=== PATIENT | female | born 1990 | race Caucasian/White ===

== ENCOUNTER 2017-08-01 19:14 | Emergency (ER) | payer SELFPAY ==
[2017-08-01 20:55] LABS: BASO % 0.3 % (0.0-2.0); EOS % 0.2 % (0.0-4.0); HEMOGLOBIN 14.3 g/dL (11.0-16.0); LYMPH # 2.8 K/uL (1.0-4.3); LYMPH % 19.7 % (20.0-40.0); MEAN CELL VOLUME 89.3 fL (81.0-99.0); MEAN CORPUSCULAR HEMOGLOBIN 29.8 pg (27.0-31.0); MEAN CORPUSCULAR HGB CONC 33.4 g/dL (33.0-37.0); MEAN PLATELET VOLUME 8.4 fL (7.2-11.7); MONO # 0.9 K/uL (0.0-0.8); MONO % 6.6 % (0.0-10.0); NEUT # 10.4 K/uL (1.8-7.0); NEUT % 73.2 % (50.0-75.0); RBC 4.79 Mil/uL (3.80-5.20); WHITE BLOOD COUNT 14.2 K/uL (4.8-10.8)
[2017-08-01 20:58] LABS: HCG,QUALITATIVE URINE POSITIVE (NEGATIVE)
[2017-08-01 21:01] LABS: SQUAMOUS EPITHIAL 1 /hpf (0-5); URINE BACTERIA FEW (<OCC); URINE BILIRUBIN NEGATIVE (NEGATIVE); URINE BLOOD NEGATIVE (NEGATIVE); URINE CLARITY Clear (Clear); URINE COLOR Yellow (YELLOW); URINE GLUCOSE (UA) NORMAL (Normal); URINE LEUKOCYTE ESTERASE NEG Leu/uL (Negative); URINE NITRATE NEGATIVE (NEGATIVE); URINE PROTEIN NEGATIVE (NEGATIVE); URINE UROBILINOGEN NORMAL mg/dL (0.2-1.0)
[2017-08-01 21:12] LABS: ALB/GLOB RATIO 1.3 (1.0-2.1); ALBUMIN 4.2 g/dL (3.5-5.0); ALT/SGPT 20 U/L (9-52); AST/SGOT 15 U/L (14-36); BLOOD UREA NITROGEN 10 mg/dL (7-17); CALCIUM 8.5 mg/dl (8.6-10.4); GFR AFRICAN-AMERICAN > 60; GFR NON-AFRICAN AMERICAN > 60
[2017-08-01] MEDS ORDERED: Sodium Chloride 0.9% 1,000 ML IV ONE (21:17)
[2017-08-01] MEDS ORDERED: Sodium Chloride 0.9% 1,000 ML ONE (21:22)
--- NOTE | 2017-08-01 21:29 | C.PDOC ---
History Of Present Illness 26 y/o female c/o nausea and vomiting that began 2 weeks ago. She states positive test at home, first time , and last period was May. Assoc. symptoms are trouble urination and reports cloudy urine. Denies fever, abdominal pain, or vaginal bleeding. She also states she hasn't seen her [employer]. Time Seen by Provider: 08/01/17 21:04 Chief Complaint (Nursing): Abdominal Pain History Per: Patient History/Exam Limitations: no limitations Onset/Duration Of Symptoms: Days (14) Current Symptoms Are (Timing): Still Present Radiation Of Pain To:: None Quality Of Discomfort: Cramping Associated Symptoms: Nausea, Vomiting, Urinary Symptoms. denies: Fever, Diarrhea Exacerbating Factors: None Alleviating Factors: None Recent travel outside of the [place]: No Abnormal Vaginal Bleeding: No Past Medical History Reviewed: Historical Data, Nursing Documentation, Vital Signs Vital Signs: Last Vital Signs Temp 98.6 F 08/01/17 20:14 Pulse 92 H 08/01/17 20:14 Resp 20 08/01/17 20:14 BP 115/78 08/01/17 20:14 Pulse Ox 100 08/02/17 00:33 - Medical History PMH: No Chronic Diseases Surgical History: No Surg Hx Family History: States: Unknown Family Hx Other Family History: nc - Social History Hx Alcohol Use: No Hx Substance Use: No - Immunization History Hx Tetanus Toxoid Vaccination: Yes (unsure) Hx Influenza Vaccination: No Hx Pneumococcal Vaccination: No Review Of Systems Constitutional: Negative for: Fever Cardiovascular: Negative for: Chest Pain, Palpitations Respiratory: Negative for: Cough, Shortness of Breath Gastrointestinal: Positive for: Nausea, Vomiting. Negative for: Abdominal Pain , Diarrhea, Constipation Genitourinary: Positive for: Dysuria. Negative for: Vaginal Discharge, Vaginal Bleeding Neurological: Negative for: Weakness, Numbness Physical Exam - Physical Exam Appears: Well, Non-toxic Skin: Warm, Dry Head: Atraumatic Eye(s): bilateral: PERRL Oral Mucosa: Moist Neck: Supple Chest: Symmetrical, No Tenderness Cardiovascular: Rhythm Regular Respiratory: No Decreased Breath Sounds, No Accessory Muscle Use, No Rales, No Rhonchi, No Stridor, No Wheezing Gastrointestinal/Abdominal: Soft, No Tenderness, No Distention, No Guarding, No Rebound Extremity: No Swelling Neurological/Psych: Oriented x3, Other (no focal deficit) ED Course And Treatment - Laboratory Results Result Diagrams: 08/01/17 20:52 08/01/17 20:52 O2 Sat by Pulse Oximetry: 100 (Room air) Pulse Ox Interpretation: Normal Medical Decision Making Medical Decision Makin pt denies need for nausea med. will give IVF bolus 0032 disc results w the pt who is resting quietly, no distress. she is comfortable w dc and will f/u w OBGYN and return if worse. Disposition - Disposition Referrals: [facility] [Outside] Disposition: HOME/ ROUTINE Disposition Time: 00:32 Condition: STABLE Additional Instructions: Please follow up with an OBGYN: call the number provided tomorrow to make an appointment. Return to the ER for any worsening symptoms or for any other concerns. Prescriptions: Doxylamine/Pyridoxine HCl (B6) [Andree Guzmán 10-10 mg Tablet] 2 tab PO DAILY PRN #20 tablet.dr PRN Reason: Nausea/Vomiting Nitrofurantoin Macrocrystals [Macrobid] 100 mg PO BID #14 cap Ondansetron ODT [Zofran ODT] 4 mg PO Q4H PRN #10 odt PRN Reason: Nausea/Vomiting Instructions: Hyperemesis Gravidarum (ED) Forms: General Discharge Instructions, [facility] (Thai) - Clinical Impression Clinical Impression: Hyperemesis gravidarum, UTI in - Scribe Statement The provider has reviewed the documentation as recorded by the Ilana Velasquez All medical record entries made by the Mariluibgelacio were at my direction and personally dictated by me. I have reviewed the chart and agree that the record accurately reflects my personal performance of the history, physical exam, medical decision making, and the department course for this patient. I have also personally directed, reviewed, and agree with the discharge instructions and disposition.
--- NOTE | 2017-08-01 23:57 | US ---
EXAM: US First Trimester, Transabdominal EXAM DATE/TIME: 08/01/2017 9:37 PM CLINICAL HISTORY: 26 years old, female; Pain; complicated by abdominal or pelvic pain; Lower; First trimester; Gestational age or lmp: 11-20-17; ; Additional info: R/O ectopic TECHNIQUE: Real-time transabdominal obstetrical ultrasound of the maternal pelvis and a first trimester with image documentation. COMPARISON: There are no prior studies for comparison. FINDINGS: Gestation: There is a single intrauterine gestation.Gestational sac has mean diameter 40.5 mm.A yolk sac is present, internal diameter measures 3 mm.[place] rump length measures approximately 20 mm. There is a heart rate of 162 beats per minute. . Uterus/: Uterus measures approximately 10 x 6 x 6.6 cm. Ovaries: Right ovary measures approximately 2.5 x 2.2 x 2.6 cm.There are multiple small follicles. There is intraovarian blood flow. Left ovary measures approximately 2.9 x 2.3 x 2.6 cm. There is a small follicle. There is intraovarian blood flow. Free fluid: There is no free fluid. . Bladder: Urinary bladder is partially distended. IMPRESSION: 9 weeks 0 day single living intrauterine gestation, estimated date of delivery 03/06/18
[2017-08-02 01:08] VITALS: BP 125/86; PULSE 78; RESP 18; TEMP 98.4; O2SAT 98
== END 2017-08-02 01:08 | disposition home or self-care (01) ==
LOC: C.ER 19:14
DX: O21.0 Mild hyperemesis gravidarum (principal); O23.41 Unspecified infection of urinary tract in pregnancy, first trimester; Z3A.09 9 weeks gestation of pregnancy
CPT/HCPCS: 76801; 80053; 81001; 84702; 84703; 85025; 96360; 99285; J7040